=== PATIENT | female | born 1970 | race Caucasian/White ===

== ENCOUNTER 2017-11-18 12:16 | Emergency (ER) | payer OTHER ==
[~2017-11-18] VITALS: Ht 152.4 cm; Wt 65.8 kg
[2017-11-18] MEDS ORDERED: GLUCOTROL5 MG PO (12:29)
[2017-11-18] MEDS ORDERED: CRESTOR10 MG PO (12:29)
[2017-11-18] MEDS ORDERED: ACCUNEB SO1.25 MG/1 INH (12:29)
[2017-11-18] MEDS ORDERED: FISH OIL 1,001000 M2 PO (12:29)
[2017-11-18] MEDS ORDERED: SYMBICORT160 MCG/4. INH (12:30)
[2017-11-18] MEDS ORDERED: NEURONTIN600 MG PO (12:30)
[2017-11-18 12:40] LABS: ABSOLUTE EOSINOPHILS 0.1 thou/uL (0.0-0.7); ABSOLUTE LYMPHOCYTES 1.5 thou/uL (0.8-5.3); ABSOLUTE MONOCYTES 0.3 thou/uL (0.0-1.2); ABSOLUTE NEUTROPHILS 8.2 thou/uL (1.6-8.1); BASOPHILS 0.3 %; EOSINOPHILS 0.8 %; HEMATOCRIT 42.8 % (37.0-47.0); HEMOGLOBIN 14.3 gm/dL (12.0-15.0); LYMPHOCYTES 14.6 %; MCH 30.6 pg (26.0-34.0); MCHC 33.3 g/dL (28.0-37.0); MCV 91.7 fL (80.0-100.0); MONOCYTES 3.1 %; MPV 9.1 fl. (7.2-11.1); NUCLEATED RBCS 0 /100WBC; PLATELET COUNT* 293 thou/uL (150-400); POLYS 81.2 %; RBC 4.67 mil/uL (4.20-5.00); RDW-CV 13.4 % (10.5-14.5); WBC 10.1 thou/uL (4.0-11.0)
[2017-11-18 12:48] LABS: ANION GAP 7 mmol/L (7-16); BUN 9 mg/dL (7-18); CALCIUM 8.8 mg/dL (8.5-10.1); CHLORIDE 99 mmol/L (98-107); CO2 27 mmol/L (21-32); CREATININE 0.8 mg/dL (0.6-1.3); GLUCOSE 377 mg/dL (70-99); POTASSIUM 3.8 mmol/L (3.5-5.1); SODIUM 133 mmol/L (136-145)
[2017-11-18 12:54] LABS: URINE BILIRUBIN NEGATIVE (Negative); URINE BLOOD 3+ (Negative); URINE CLARITY SL CLOUDY; URINE COLOR STRAW; URINE GLUCOSE-RANDOM 3+ (Negative); URINE KETONES TRACE (Negative); URINE LEUKOCYTES-REFLEX TRACE (Negative); URINE NITRITE-REFLEX NEGATIVE (Negative); URINE PROTEIN NEGATIVE (Negative); URINE UROBILINOGEN 0.2 E.U./dl (0.2-1.0)
[2017-11-18 12:55] LABS: ALBUMIN 3.4 g/dL (3.4-5.0); ALKALINE PHOSPHATASE 125 U/L (46-116); LIPASE 142 U/L (73-393); SGOT 22 U/L (15-37); SGPT 22 U/L (30-65); TOTAL BILIRUBIN 0.6 mg/dL (<0.1-1.0); TOTAL PROTEIN 7.1 g/dL (6.4-8.2); TROPONIN-I LEVEL <0.06 ng/mL (<0.06)
[2017-11-18 13:37] LABS: SQUAMOUS 4-10 Moderate /LPF (0-3); URINE RBC >20 Many /HPF (0-2); URINE WBC-REFLEX 0-5 Rare /HPF (0-5)
[2017-11-18 13:38] LABS: BACTERIA-REFLEX 1-9 Few /HPF (None Seen); CASTS None Seen /LPF (None Seen); CRYSTALS None Seen /LPF (None Seen); MUCUS 0-3 Light strn/LPF (None Seen)
[2017-11-18] MEDS ORDERED: NORCO 5-325 TA1 EACH PO (15:17)
[2017-11-18 15:40] VITALS: BP 115/79
--- NOTE | 2017-11-18 17:35 | EKG ---
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
== END 2017-11-18 15:40 | disposition home or self-care (01) ==
LOC: M.ERS 12:16
PROVIDERS: Emergency Medicine Emergency Medical Services
DX: R10.12 Left upper quadrant pain (principal); R10.32 Left lower quadrant pain; E11.9 Type 2 diabetes mellitus without complications; J45.909 Unspecified asthma, uncomplicated; E78.00 Pure hypercholesterolemia, unspecified; Z91.040 Latex allergy status; Z88.8 Allergy status to other drugs, medicaments and biological substances

== ENCOUNTER 2020-05-21 15:33 | Emergency (ER) | payer OTHER ==
[~2020-05-21] VITALS: Ht 162.6 cm; Wt 59.9 kg
[~2020-05-21 15:33] MED LIST: ACCUNEB SO1.25 MG/1 INH; CRESTOR10 MG PO; FISH OIL 1,001000 M2 PO; GLUCOTROL5 MG PO; NEURONTIN600 MG PO; NORCO 5-325 TA1 EACH PO; SYMBICORT160 MCG/4. INH
[2020-05-21] MEDS ORDERED: GLIPIZIDE 10 MG10 MG PO (15:45)
[2020-05-21] MEDS ORDERED: VITAMIN D (15:46)
[2020-05-21] MEDS ORDERED: IRON325 M1 PO (15:46)
[2020-05-21 16:42] LABS: URINE BILIRUBIN NEGATIVE (Negative); URINE BLOOD NEGATIVE (Negative); URINE CLARITY CLEAR; URINE COLOR YELLOW; URINE GLUCOSE-RANDOM NEGATIVE (Negative); URINE KETONES NEGATIVE (Negative); URINE LEUKOCYTES-REFLEX NEGATIVE (Negative); URINE NITRITE-REFLEX NEGATIVE (Negative); URINE PROTEIN NEGATIVE (Negative); URINE SPECIFIC GRAVITY >= 1.030 (1.005-1.030); URINE UROBILINOGEN 0.2 E.U./dl (0.2-1.0)
[2020-05-21] MEDS ORDERED: NORCO 5-325 TA1 EAC2 PO (18:43)
[2020-05-21] MEDS ORDERED: MEDROLDOSEPACK PO (18:43)
[2020-05-21] MEDS ORDERED: IBUPROFEN 800800 M1 PO (18:43)
[2020-05-21 18:51] VITALS: BP 139/75
== END 2020-05-21 18:51 | disposition home or self-care (01) ==
LOC: M.ERS 15:33
PROVIDERS: Nurse Practitioner Family
DX: M54.32 Sciatica, left side (principal); E11.9 Type 2 diabetes mellitus without complications; J45.909 Unspecified asthma, uncomplicated; E78.00 Pure hypercholesterolemia, unspecified; Z91.040 Latex allergy status; Z88.8 Allergy status to other drugs, medicaments and biological substances; Z98.51 Tubal ligation status

== ENCOUNTER → 2020-10-09 | Outpatient (CLI) | payer OTHER ==
[~2020-10-09] MED LIST changes: +GLIPIZIDE 10 MG10 MG PO; +IBUPROFEN 800800 M1 PO; +IRON325 M1 PO; +MEDROLDOSEPACK PO; +NORCO 5-325 TA1 EAC2 PO; +VITAMIN D
== END ==
LOC: M.RAD 09:43
PROVIDERS: ATTEND Registered Nurse Diabetes Educator
DX: Z12.31 Encounter for screening mammogram for malignant neoplasm of breast (principal)

== ENCOUNTER → 2020-10-11 | Outpatient (CLI) | payer OTHER | LOC: M.RAD 08:43 | PROVIDERS: ATTEND Registered Nurse Diabetes Educator | DX: R92.0 Mammographic microcalcification found on diagnostic imaging of breast (principal); N63.14 Unspecified lump in the right breast, lower inner quadrant ==

== ENCOUNTER → 2020-10-17 | Outpatient (CLI) | payer OTHER ==
--- NOTE | 2020-10-25 13:08 | PATH ---
[address] [address] PATHOLOGY RPT PROCEDURE Name: SELINA CHOW Room: [facility] Deanna#: [id number] Admission: 10/17/20 Date of : 74 Discharge: Report #: [id number] Path Case #: [id number] [facility] Accession Number: [id number] . 01 Material submitted: . breast - RIGHT BREAST CALCIFICATIONS . Modifiers: right . 01 Clinical history: . RIGHT BREAST STEREOTACTIC BIOPSY FOR CALCIFICATIONS . 02 Diagnosis: Breast "right stereotactic biopsy": - Fibrocystic changes including dense fibrosis, usual ductal hyperplasia, duct ectasia, cyst formation, and adenosis. - Rare extraluminal microcalcification. - Negative for atypia and malignancy. - Small fragment of benign skin. - Please see comment. (ALANIS:kelsea; 10/24/2020) QTP 10/25/2020 1255 Local . 02 Comment: There are a few non-luminal microcalcifications present in adipose tissue in one of the un-marked blocks. This may represent an area of prior trauma. Please correlate clinically. . The case is seen in co-review with Dr. Miguel Angel Simpson who concurs with the above diagnosis. (MLK:[facility]; 10/24/2020) . 02 Electronically signed: . Keo Shirley MD, Pathologist NPI- [id number] . 01 Gross description: . The specimen is received in formalin, labeled "Selina Chow, right breast calcifications" received as multiple soft johnston-yellow tissue cores measuring up to 2.1 cm x 0.3 cm. The specimen is entirely submitted A1-A8 (tissue within blue cassette/presumed calcifications in cassette A1). The specimen is removed from the patient at 1010 hours and placed in formalin at 1025 hours on Thursday, October 17, 2020. The specimen is removed from formalin at 11:30pm. The specimen is in formalin for greater than 6 hours and less than 72 hours. ([facility]; 10/17/2020) CAROLYN/CAROLYN 10/17/2020 1950 Local . 02 Pathologist provided ICD-10: N60.11, N60.31, N62, N60.41, N60.21 [place] [address] PATHOLOGY RPT PROCEDURE Name: SELINA CHOW Room: [facility]#: [id number] Admission: 10/17/20 Date of : 74 Discharge: Report #: [id number] Path Case #: [id number] . 02 CPT . 607358 Specimen Comment: A courtesy copy of this report has been sent to [phone], [phone] Specimen Comment: [phone] Specimen Comment: Report sent to / DR HODGSON Performed at: 01 [facility] [address] [id number] MD Gucci Arriaga MD Phone: [phone] Performed at: 02 [facility] [address] [id number] MD Brown Mahajan MD Phone: [phone]
== END ==
LOC: M.RAD 08:04
PROVIDERS: ATTEND Registered Nurse Diabetes Educator
DX: R92.1 Mammographic calcification found on diagnostic imaging of breast (principal)